=== PATIENT | female | born 1970 | race Caucasian/White ===

== ENCOUNTER 2017-07-04 12:10 | Emergency (ER) | payer MEDICAID ==
--- NOTE | 2017-07-04 12:56 | ERNOTE ---
GI Bleeding/Rectal Pain ER Date of Service: 07/04/17 Presenting Symptoms: dark/tarry stools Time Seen by Provider: 07/04/17 12:37 Source: patient Exam Limitations: no limitations Immunizations: IMMUNIZATION HX Immunizations Up to Date Yes History of Influenza Vaccine More Information Required Hx Pneumococcal Vaccination More Information Required Allergies/Adverse Reactions: Allergies Penicillins Allergy (Verified 10/08/16 18:48) Home Medications: HOME MEDICATIONS Albuterol Sulfate [Proair Hfa] 2 puff IH Q4H PRN 10/08/16 [Last Taken Unknown] Atorvastatin Calcium 40 mg PO HS 10/08/16 [Last Taken Unknown] Beclomethasone Dipropionate [Qvar] 2 puff IH BID 10/08/16 [Last Taken Unknown] Citalopram Hydrobromide [Celexa] 40 mg PO DAILY 10/08/16 [Last Taken Unknown] Lisinopril [Prinivil] 20 mg PO BID 10/08/16 [Last Taken Unknown] glipiZIDE [Glipizide Xl] 10 mg PO BID 10/08/16 [Last Taken Unknown] lamoTRIgine [Lamotrigine] 75 mg PO DAILY 10/08/16 [Last Taken Unknown] Narrative: Pt. comes in with c/o dark black diarrhea stools for two weeks that pt. states are more red when she washes in the shower. Pt. denies any rectal pain but states that she has had some abdominal pain that has accompanied her symptoms for two weeks. Pt. denies any fevers, SOB, CP, dizziness, weakness, nausea or vomiting. Pt. denies any alleviating factors, aggravating factors or prehospital treatment. Pt. does state that she has not had a BM in 18 hours. Review of Systems - Review of Systems Constitutional: Present: no symptoms reported, decreased activity level. Absent : recent illness, fever, chills, weakness, fatigue, malaise ENT: Present: no symptoms reported Respiratory: Present: no symptoms reported. Absent: shortness of breath, cough , wheezing Cardiology: Present: no symptoms reported. Absent: chest pain, palpitations, edema Gastrointestinal/Abdominal: Present: diarrhea, abdominal pain, other - bloody stools. Absent: nausea, vomiting Genitourinary: Present: no symptoms reported. Absent: frequency, decreased urinary output Musculoskeletal: Present: no symptoms reported. Absent: back pain, joint pain Skin: Present: no symptoms reported. Absent: rash Neurological: Present: no symptoms reported. Absent: headache, dizziness/light- headedness, numbness, tingling All Other Systems: All systems neg except as marked - Patient's Past Medical History Patient History - Medical: Diabetes Type 2 Insulin Dependent, Seizures Patient History - Surgical Procedures: Other Patient History - Other: None - Social History Living Situations: home Abuse History: Hx of Substance Use Smoking Status: Former smoker Have you smoked in the past 12 months: No Drug Use: marijuana - Immunizations Immunizations Up to Date: Yes Hx Pneumococcal Vaccination: More Information Required to Determine History of Influenza Vaccine: More Information Required to Determine Physical Exam - Physical Exam General Appearance: Present: wd/wn, alert, no apparent distress Head Exam: Present: normal inspection, no evidence of injury Eye Exam: Normal inspection: bilateral, PERRL: bilateral, EOMI: bilateral Ears, Nose, Throat: Present: normal ENT inspection, normal pharynx Neck: Present: normal inspection, nontender. Absent: lymphadenopathy (R), lymphadenopathy (L) Respiratory: Present: no respiratory distress, normal breath sounds, no accessory muscle use Cardiovascular/Chest: Present: regular rate, rhythm, no murmur, normal peripheral pulses Gastrointestinal/Abdominal: Present: tenderness - difuse mid epigastric and BLQ. Absent: rebound, McBurney sign, Obturator sign, Oliver sign, Psoas sign, mass, hepatomegaly Rectal Exam: Present: nontender, normal rectal tone. 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 Absent: pallor, skin rash ED Progress - Date and Time Seen: Date and Time: 07/04/17 15:02 As pt. labs are normal and pt. has no hemorrhoids and heme negative stool feel that pt. likely has constipation and not GI bleeding but will have pt. follow up with PCP in 2-3 days for further evaluation. - Results and Orders Patient's Lab Results:: I have reviewed the patient's lab results. - Vital Signs Patient's Vital Signs:: I have reviewed the patient's vital signs. Vital Signs: Vital Signs 07/04/17 12:24 Temperature 36.8 C Pulse Rate 86 Respiratory 16 Rate Blood Pressure 122/74 O2 Sat by Pulse 93 Oximetry - X-Ray X-Ray #1 X-Ray: abdomen Interpretation: Reviewed by me X-ray Comments: moderate stool retention - Progress/Reassessment Chief Complaint: GI Bleed Departure Clinical Impression: Constipation Qualifiers: Constipation type: unspecified constipation type Qualified Code(s): K59.00 - Constipation, unspecified - Departure Disposition: Home self-care Condition: Good Instructions: Constipation, Adult, [id number] Additional Instructions: Please start taking 1 capful miralax.
[2017-07-04 13:04] LABS: Hematocrit 45.3 % (37.0-47.0); Hemoglobin 15.1 gm/dL (12.5-16.0); Mean Cell Volume 90.6 fl (78-100); Mean Corpuscular Hemoglobin 30.2 pg (27-31); Mean Corpuscular Hgb Conc 33.3 g/dl (32-36); Mean Platelet Volume 10.7 fl (6.0-9.5); Neutrophil # 4.2 K/mm3 (1.3-6.0); Neutrophil % 62.3 % (42-75.0); Platelet Count 260 K/mm3 (150-450); Red Cell Distribution Width 12.6 % (11.5-14.0); White Blood Count 6.8 K/mm3 (4.0-10.5)
[2017-07-04 13:13] LABS: Prothrombin Time (Patient) 10.4 Seconds (9.4-11.4)
[2017-07-04 13:14] LABS: Partial Thrombolplastin Time 26.4 Seconds (24-32)
[2017-07-04 13:16] LABS: Albumin * 3.8 gm/dl (3.4-5.0); Anion Gap 15.3 mmol/L (6.8-13.8); BUN/Creatinine Ratio 16.3 (9.0-21.6); Bilirubin, Total 0.5 mg/dL (0.0-1.1); Ca. Corrected For Albumin 9.2 mg/dL (8.4-10.2); Calcium * 9.4 mg/dL (7.9-10.9); Carbon Dioxide 24.9 mmol/L (24-32.6); Potassium 4.2 mmol/L (3.4-4.6); Total Protein 7.9 gm/dL (6.2-8.2)
[2017-07-04 13:44] LABS: Urine Bilirubin Negative (NEGATIVE); Urine Blood Negative /ul (NEGATIVE); Urine Ketone Negative (NEGATIVE); Urine Nitrite Negative (NEGATIVE); Urine Protein Negative (NEGATIVE); Urine Specific Gravity >=1.030 SP.GR. (1.005-1.010); Urine Urobilinogen Normal (NORMAL); Urine pH 5.5 pH (5.0-7.0)
[2017-07-04 13:57] LABS: Urine Appearance Slightly Cloudy; Urine Bacteria TRACE; Urine Color Dark Yellow; Urine RBC 0-5 /hpf (0-5); Urine WBC None Seen /hpf (0-5); Urine Yeast Few - 1+
[2017-07-04 15:45] VITALS: BP 138/95
== END 2017-07-04 15:46 | disposition home or self-care (01) ==
LOC: ER 12:10
DX: K59.00 Constipation, unspecified (principal)

== ENCOUNTER 2017-09-17 10:33 | Emergency (ER) | payer MEDICAID ==
[2017-09-17 10:57] LABS: Hematocrit 40.8 % (37.0-47.0); Hemoglobin 13.7 gm/dL (12.5-16.0); Mean Cell Volume 90.7 fl (78-100); Mean Corpuscular Hemoglobin 30.4 pg (27-31); Mean Corpuscular Hgb Conc 33.6 g/dl (32-36); Mean Platelet Volume 10.6 fl (6.0-9.5); Platelet Count 234 K/mm3 (150-450); Red Cell Distribution Width 11.9 % (11.5-14.0); White Blood Count 8.9 K/mm3 (4.0-10.5)
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
[2017-09-17 11:10] LABS: Albumin * 3.4 gm/dl (3.4-5.0); Anion Gap 12.6 mmol/L (6.8-13.8); BUN/Creatinine Ratio 16.7 (9.0-21.6); Bilirubin, Total 0.9 mg/dL (0.0-1.1); Ca. Corrected For Albumin 9.3 mg/dL (8.4-10.2); Calcium * 9.1 mg/dL (7.9-10.9); Carbon Dioxide 25.7 mmol/L (24-32.6); Potassium 3.3 mmol/L (3.4-4.6); Total Protein 7.2 gm/dL (6.2-8.2)
[2017-09-17 11:21] LABS: Urine Appearance Slightly Cloudy; Urine Color Yellow
[2017-09-17] MEDS ORDERED: LORazepam 2 MG/ML DISP.SYRIN ONE (11:21)
[2017-09-17 11:22] LABS: Urine Bilirubin Negative (NEGATIVE); Urine Blood 25 /ul (NEGATIVE); Urine Ketone 5 mg/dL (NEGATIVE)
[2017-09-17 11:23] LABS: Urine Nitrite Positive (NEGATIVE); Urine Protein 15 mg/dL (NEGATIVE); Urine Urobilinogen Normal (NORMAL)
[2017-09-17 11:27] LABS: Cocaine Ur Negative (NEGATIVE); Urine Barbiturate Negative (NEGATIVE); Urine Opiates Negative (NEGATIVE); Urine PCP Negative (NEGATIVE); Urine THC Negative (NEGATIVE)
[2017-09-17 11:29] LABS: Urine Benzodiazepines Positive (NEGATIVE)
[2017-09-17 11:32] LABS: Urine Bacteria 4+; Urine WBC >50 /hpf (0-5)
[2017-09-17] MEDS ORDERED: NITROFURANTOIN/NITROFURAN MAC 100 MG CAPSULE ONE (12:07)
[2017-09-17] MEDS ORDERED: ACETAMINOPHEN 325 MG TABLET ONE (12:07)
[2017-09-17] MEDS: NITROFURANTOIN/NITROFURAN MAC 100 MG CAPSULE PO ONE (12:11)
[2017-09-17] MEDS: ACETAMINOPHEN 325 MG TABLET PO ONE (12:11)
[2017-09-17 13:09] VITALS: BP 108/72
== END 2017-09-17 12:45 | disposition home or self-care (01) ==
LOC: ER 10:33
DX: G40.802 Other epilepsy, not intractable, without status epilepticus (principal); B37.2 Candidiasis of skin and nail; N30.00 Acute cystitis without hematuria; E11.9 Type 2 diabetes mellitus without complications; Z79.4 Long term (current) use of insulin